=== PATIENT | female | born 1995 | race Caucasian/White ===

== ENCOUNTER 2017-11-01 10:35 | Emergency (ER) | payer OTHER ==
[2017-11-01 10:39] VITALS: BMI 32.5
[2017-11-01 10:40] VITALS: BP 138/73; RESP 17; TEMP 98.5; O2SAT 100
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
[2017-11-01 14:28] VITALS: PULSE 75
== END 2017-11-01 14:27 | disposition home or self-care (01) ==
LOC: H.ER 10:35
DX: S09.90XA Unspecified injury of head, initial encounter (principal); T14.8XXA Other injury of unspecified body region, initial encounter; X58.XXXA Exposure to other specified factors, initial encounter; V89.2XXA Person injured in unspecified motor-vehicle accident, traffic, initial encounter